=== PATIENT | female | born 1985 | race African-American/Black ===

== ENCOUNTER 2023-07-14 11:06 | Emergency (ER) | payer OTHER ==
[~2023-07-14] VITALS: Ht 165.1 cm; Wt 136.0 kg
[2023-07-14 11:12] VITALS: O2SAT 96
[2023-07-14] MEDS ORDERED: FLUORESCEIN SODIUM 1MG/STRIP RIGHTEYE ONE (12:30)
[2023-07-14] MEDS ORDERED: TETRACAINE 0.5% OPHTH DROPS 4ML RIGHTEYE ONE (12:30)
[2023-07-14] MEDS ORDERED: DICL2.5D8 RIGHTEYE (13:59)
[2023-07-14 16:41] VITALS: BP 139/86; PULSE 84; RESP 18
[2023-07-15] MEDS ORDERED: POLY10DR RIGHTEYE (11:22)
== END 2023-07-14 17:40 | disposition home or self-care (01) ==
LOC: ER 11:06
DX: S05.01XA Injury of conjunctiva and corneal abrasion without foreign body, right eye, initial encounter (principal); E11.9 Type 2 diabetes mellitus without complications; E78.00 Pure hypercholesterolemia, unspecified; I10 Essential (primary) hypertension; F20.9 Schizophrenia, unspecified; X58.XXXA Exposure to other specified factors, initial encounter; Y93.89 Activity, other specified; Y92.89 Other specified places as the place of occurrence of the external cause; Y99.8 Other external cause status
CPT/HCPCS: 99283

== ENCOUNTER 2023-07-15 02:16 | Emergency (ER) | payer OTHER ==
[~2023-07-15] VITALS: Ht 165.1 cm; Wt 132.0 kg
[~2023-07-15 02:16] MED LIST: DICL2.5D8 RIGHTEYE
[2023-07-15 02:53] VITALS: TEMP 97.9; O2SAT 100
[2023-07-15 07:04] LABS: CLARITY URINE CLEAR (CLEAR); COLOR URINE YELLOW (YELLOW)
[2023-07-15 07:05] LABS: GLUCOSE URINE NEGATIVE (NEGATIVE); KETONES URINE TRACE (NEGATIVE); LEUKOCYTE ESTERASE URINE NEGATIVE (NEGATIVE); NITRITE URINE NEGATIVE (NEGATIVE); OCCULT BLOOD URINE NEGATIVE (NEGATIVE); PROTEIN URINE 1+ (NEGATIVE)
[2023-07-15 07:40] LABS: BASOPHILS % 0.3 % (0.0-2.0); EOSINOPHILS % 0.5 % (0.0-5.0); HEMATOCRIT. 37.3 % (36.0-48.0); HEMOGLOBIN. 12.2 g/dL (12.0-16.0); LYMPHOCYTES % 22.3 % (20.0-50.0); MEAN CORPUSCULAR HEMOGLOBIN 29.7 pg (28.0-32.0); MEAN CORPUSCULAR HGB CONC 32.6 g/dL (31.0-37.0); MEAN CORPUSCULAR VOLUME 90.9 fL (81.0-99.0); MEAN PLATELET VOLUME 8.4 fl (7.4-10.4); MONOCYTES % 5.6 % (2.0-8.0); NEUTROPHILS % 71.3 % (40.0-76.0); PLATELET 246 x1000/uL (130-400); RED CELL DISTRIBUTION WIDTH 14.1 % (11.6-14.6); WHITE BLOOD COUNT 9.2 x1000/uL (4.5-11.0)
[2023-07-15 07:43] LABS: SQUAMOUS EPITHELIAL CELL URINE 1+ /lpf (RARE/1+)
[2023-07-15 07:44] LABS: RBC URINE 0-2 /hpf (0-2); WBC URINE 0-2 /hpf (0-2)
[2023-07-15 07:48] LABS: *AMPHETAMINES SCREEN URINE NEGATIVE (NEGATIVE); *BARBITURATES SCREEN URINE NEGATIVE (NEGATIVE); *BENZODIAZEPINES SCREEN URINE NEGATIVE (NEGATIVE); *COCAINE SCREEN URINE NEGATIVE (NEGATIVE); CANNABINOID URINE SCREEN NEGATIVE (NEGATIVE); ECSTASY MDMA SCREEN URINE NEGATIVE (NEGATIVE); METHADONE URINE SCREEN Neg (NEGATIVE); OPIATES URINE SCREEN NEGATIVE (NEGATIVE); PHENCYCLIDINE URINE SCREEN NEGATIVE (NEGATIVE)
[2023-07-15 07:50] LABS: BACTERIA URINE NONE SEEN
[2023-07-15 08:05] LABS: HCG SCREEN NEGATIVE
[2023-07-15 08:17] LABS: ALANINE AMINOTRANSFERASE 14 IU/L (10-49); ALBUMIN 3.8 g/dL (3.2-4.8); ASPARTATE AMINOTRANSFERASE 15 IU/L (<34); BILIRUBIN TOTAL 0.4 mg/dL (0.1-1.0); CALCIUM 9.4 mg/dL (8.7-10.4); CARBON DIOXIDE 26 mEq/L (21-32); CHLORIDE 105 mEq/L (98-107); CREATININE 0.7 mg/dL (0.6-1.0); GLUCOSE 224 mg/dL (70-105); POTASSIUM 4.5 mEq/L (3.5-5.1); SODIUM 137 mEq/L (136-145); UREA NITROGEN BLOOD 8 mg/dL (9-23)
[2023-07-15 08:47] VITALS: BP 140/70; PULSE 68; RESP 16
[2023-07-15 08:55] LABS: ETHANOL BLOOD < 10 mg/dL (<10)
[2023-07-15] MEDS ORDERED: POLY10DR RIGHTEYE (11:22)
== END 2023-07-15 11:38 | disposition home or self-care (01) ==
LOC: ER 02:16
DX: H10.9 Unspecified conjunctivitis (principal); F32.A Depression, unspecified; E11.9 Type 2 diabetes mellitus without complications; E78.00 Pure hypercholesterolemia, unspecified; I10 Essential (primary) hypertension; R51.9 Headache, unspecified
CPT/HCPCS: 36415; 70486; 80053; 80305; 80320; 81003; 81025; 84703; 85025; 99284; G0480